=== PATIENT | male | born 1995 | race Hispanic/Latino ===

== ENCOUNTER 2019-02-13 21:56 | Emergency (ER) | payer OTHER ==
[~2019-02-13] VITALS: Ht 154.9 cm; Wt 81.7 kg
[2019-02-13] MEDS ORDERED: MAPAP500 MG PO (22:07)
== END 2019-02-14 00:19 | disposition home or self-care (01) ==
LOC: ED 21:56
DX: R51 Headache (principal); Z87.891 Personal history of nicotine dependence
CPT/HCPCS: 70450; 99284-25

== ENCOUNTER 2024-11-18 04:21 | Emergency (ER) | payer OTHER ==
[~2024-11-18] VITALS: Ht 154.9 cm; Wt 75.0 kg
[~2024-11-18 04:21] MED LIST: MAPAP500 MG PO
[2024-11-18] MEDS ORDERED: NALOXONE 4 MG NASAL SPRAY #2 HOME.PACK NAS ONE (05:00)
[2024-11-18 06:30] VITALS: BP 117/65
== END 2024-11-18 06:30 | disposition home or self-care (01) ==
LOC: ED 04:21
DX: T40.411A Poisoning by fentanyl or fentanyl analogs, accidental (unintentional), initial encounter (principal); T43.651A Poisoning by methamphetamines accidental (unintentional), initial encounter; Z87.891 Personal history of nicotine dependence
CPT/HCPCS: 99284; J3490

== ENCOUNTER 2024-12-07 00:28 | Emergency (ER) | payer OTHER ==
[~2024-12-07] VITALS: Ht 154.9 cm; Wt 71.6 kg
[2024-12-07 00:45] LABS: BASOPHILS 1.4 % (0.2-1.2); EOSINOPHILS 2.2 % (0.8-7.0); LYMPHOCYTES 35.5 % (21.8-53.1); MCH 29.9 PG (25.7-32.2); MCHC 33.2 g/dL (32.3-36.5); MCV 90.0 fL (79.0-92.2); MONOCYTES 4.4 % (5.3-12.2); NEUTROPHILS 54.9 % (34.0-67.9); RBC 4.79 M/uL (4.63-6.08)
[2024-12-07 01:13] LABS: ALCOHOL, MEDICAL <3 ng/dL (<3); ALT (SGPT) 34 U/L (14-59); AST (SGOT) 47 U/L (15-37); GLOMERULAR FILTRATION RATE,EST 65 mL/min (>60); PROTEIN, TOTAL 7.4 g/dL (6.4-8.2); TSH, 3RD GENERATION 2.352 uIU/mL (0.358-3.740); UREA NITROGEN 13 mg/dL (7-18)
[2024-12-07] MEDS ORDERED: LACTATED RINGER'S 1,000 ML IV ONE ×2 (02:00→03:30)
[2024-12-07] MEDS ORDERED: ASPIRIN 81 MG CHEW PO ONE (02:45)
[2024-12-07] MEDS ORDERED: NALOXONE HCL 2 MG/2 ML SYR IV ONE (03:30)
[2024-12-07 03:32] LABS: BLOOD/HGB, URINE TRACE-I (Negative); KETONE, URINE NEGATIVE (Negative); LEUK ESTERASE, URINE NEGATIVE (negative); NITRITE, URINE NEGATIVE (negative)
[2024-12-07 03:37] LABS: EPITHELIAL CELLS, URINE SQUAMOUS 1+ /lpf (0-1+)
[2024-12-07 03:38] LABS: BACTERIA, URINE RARE /hpf (negative); CASTS, URINE NONE SEEN \\lpf; CRYSTALS, URINE NONE SEEN (0-1+)
[2024-12-07 03:39] LABS: REFLEX CULTURE, URINE No (No)
[2024-12-07 03:47] LABS: AMPHETAMINES, URINE POSITIVE (NEGATIVE); BARBITURATES, URINE NEGATIVE (NEGATIVE); BENZODIAZEPINE, URINE NEGATIVE (NEGATIVE); CANNABINOID, URINE POSITIVE (NEGATIVE); COCAINE, URINE NEGATIVE (NEGATIVE); ECSTASY, URINE NEGATIVE (NEGATIVE); FENTANYL, URINE POSITIVE (NEGATIVE); METHADONE, URINE NEGATIVE (NEGATIVE); OPIATES, URINE NEGATIVE (NEGATIVE); OXYCODONE, URINE NEGATIVE (NEGATIVE); PHENCYCLIDINE, URINE NEGATIVE (NEGATIVE)
[2024-12-07 03:59] LABS: LACTIC ACID, BLOOD 1.3 mmol/L (0.4-2.0)
[2024-12-07] MEDS ORDERED: NALOXONE 4 MG NASAL SPRAY #2 HOME.PACK NAS ONE (09:30)
[2024-12-07 09:40] VITALS: BP 120/81
--- NOTE | 2024-12-09 08:15 | EKG ---
[facility] [address] [facility] [place], [place] [address] Signed Normal sinus rhythm Possible Right ventricular hypertrophy Lateral infarct (cited on or before 07-DEC-2024) Possible Inferior infarct (cited on or before 07-DEC-2024) Abnormal ECG When compared with ECG of 07-DEC-2024 00:27, No significant change was found Confirmed by Steph Augustin MD ([id number]) on 12/09/2024 8:15:51 AM Electronically Signed By: STEPH AUGUSTIN MD 12/09/24 0815 PATIENT NAME: KEKE MURRAY Electrocardiogram DATE OF : [birth year] PHYSICIAN: STEPH AUGUSTIN MD REPORT #: [id number] REPORT IS CONFIDENTIAL AND NOT TO BE RELEASED WITHOUT AUTHORIZATION
--- NOTE | 2024-12-09 08:15 | EKG ---
[facility] [address] [facility] [place], [place] [address] Signed Normal sinus rhythm Possible Right ventricular hypertrophy Lateral infarct , age undetermined Inferior infarct , age undetermined Abnormal ECG No previous ECGs available Confirmed by Cachorro Augustin MD ([id number]) on 12/09/2024 8:15:20 AM Electronically Signed By: CACHORRO AUGUSTIN MD 12/09/24814 PATIENT NAME: KEKE MURRAY NEGAR Electrocardiogram DATE OF : [birth year] PHYSICIAN: CACHORRO AUGUSTIN MD REPORT #: [id number] REPORT IS CONFIDENTIAL AND NOT TO BE RELEASED WITHOUT AUTHORIZATION
== END 2024-12-07 09:40 | disposition home or self-care (01) ==
LOC: ED 00:28 → EDBD 00:29 → ED 00:29
PROVIDERS: Internal Medicine
DX: T40.411A Poisoning by fentanyl or fentanyl analogs, accidental (unintentional), initial encounter (principal); R79.89 Other specified abnormal findings of blood chemistry
CPT/HCPCS: 36415; 51798; 71045; 80053; 80307; 81001; 83036; 83605; 84443; 84484; 85025; 87040; 93005; 93010; 96365; 99285-25; A9270; G0480; J0696; J3490; J7121